=== PATIENT | male | born 1995 | race Hispanic/Latino ===

== ENCOUNTER 2021-07-22 10:33 | Observation (INO) | payer OTHER, SELFPAY ==
[2021-07-22] MEDS ORDERED: Bupivacaine 0.5% 10 ML VIAL ONE (11:05)
[2021-07-22] MEDS ORDERED: ceFAZolin (BATCH) 2 GM/100 ML BAG ONE ×2 (11:45→18:09)
[2021-07-22] MEDS ORDERED: Ketorolac Tromethamine 30 MG/ML VIAL ONE ×2 (11:59→18:18)
[2021-07-22] MEDS ORDERED: Boostrix 0.5 ML (Tdap) VIAL ONE (11:59)
[2021-07-22 14:12] LABS: SARS-CoV-2 NAA Rapid Test Not Detected (NotDetected)
[2021-07-22] MEDS ORDERED: Fentanyl 100 MCG/2 ML VIAL ONE (17:38)
[2021-07-22] MEDS ORDERED: EPINEPHrine 1 MG/ML AMP ONE (17:59)
[2021-07-22] MEDS ORDERED: Neomycin-Polymyxin 1 ML AMP ONE (17:59)
[2021-07-22] MEDS ORDERED: Bupivacaine 0.25% 10 ML VIAL ONE (17:59)
[2021-07-22] MEDS ORDERED: Bacitracin Zinc Ointment 30 gm TUBE ONE (17:59)
[2021-07-22] MEDS ORDERED: Fentanyl 100 MCG/2 ML VIAL SLOW IVP PRN (18:14)
[2021-07-22] MEDS ORDERED: Acetaminophen 325 MG TAB PO PRN (18:14)
[2021-07-22] MEDS ORDERED: HYDROcodone/Acetaminophen 5/325 mg Tablet PO PRN (18:14)
[2021-07-22] MEDS ORDERED: Morphine 4 MG/ML VIAL SLOW IVP PRN (18:14)
[2021-07-22] MEDS ORDERED: Ondansetron PF 4 MG/2 ML Vial SLOW IVP PRN (18:14)
[2021-07-22] MEDS ORDERED: Milk Of Magnesia 30 ML UDCUP PO PRN (18:14)
[2021-07-22] MEDS ORDERED: traMADol HCl 50 MG TAB PO PRN (18:14)
[2021-07-22] MEDS ORDERED: Pharmacy to Dose : VANC/ABX'S IVPB PRN (18:15)
[2021-07-22] MEDS ORDERED: TETANUS AND DIPHTHERIA TOX/PF 0.5 ML DISP.SYRIN IM SCH (18:15)
[2021-07-22] MEDS ORDERED: Dexamethasone 20 MG/5 ML VIAL ONE (18:18)
[2021-07-22] MEDS ORDERED: Lidocaine 1% PF 5 ML VIAL ONE (18:18)
[2021-07-22] MEDS ORDERED: Ondansetron PF 4 MG/2 ML Vial ONE (18:18)
[2021-07-22] MEDS ORDERED: PROPOFOL 200 MG/20 ML VIAL ONE (18:18)
[2021-07-22] MEDS ORDERED: Ketorolac Tromethamine 30 MG/ML VIAL IVP PRN (18:19)
[2021-07-22] MEDS ORDERED: Meperidine HCl/PF 25 MG/ML VIAL IM PRN (18:19)
[2021-07-22] MEDS ORDERED: HYDROmorphone 2 MG/ML VIAL ONE (19:26)
[2021-07-22 21:59] LABS: Anion Gap 12 mmol/L (10-20); BUN (Urea Nitrogen) 11 mg/dL (8.9-20.6); Calc. Creatinine Clearance 0 mL/min (70-130); Calcium 9.1 mg/dL (7.8-10.44); Carbon Dioxide 22 mmol/L (22-29); Chloride 108 mmol/L (98-107); Glucose 103 mg/dL (70-105); Potassium 4.2 mmol/L (3.5-5.1); Sodium 138 mmol/L (136-145)
[2021-07-22 22:03] VITALS: BMI 21.2
[2021-07-22] MEDS ORDERED: Aspirin 81 mg Enteric Coated Tablet PO SCH (23:59)
[2021-07-23] MEDS ORDERED: Aspirin 81 mg Enteric Coated Tablet ONE (00:27)
[2021-07-23] MEDS ORDERED: Aspirin Chewable 81 MG TAB ONE (00:28)
[2021-07-23] MEDS: Vancomycin 1 GM in Premix Bag 1 BAG IVPB SCH ×2 (00:30→09:00)
[2021-07-23] MEDS: Sodium Chloride 0.9% 100 ML IV SCH ×2 (00:30→00:31)
[2021-07-23] MEDS: Sodium Chloride 0.9% 1,000 ML IV SCH ×2 (00:54→11:52)
[2021-07-23] MEDS ORDERED: Aspirin 81 mg Enteric Coated Tablet PO SCH (09:00)
[2021-07-23 10:58] VITALS: BP 112/70; TEMP 97.7
== END 2021-07-23 12:45 | disposition home or self-care (01) ==
LOC: ERS 10:33 → ERHOLD 12:13 → SURG A 17:18 → OBSVTOIN 18:14 → INTOOBSV 18:14 → MSONC 21:43
PROVIDERS: ADMIT Orthopaedic Surgery Hand Surgery; ATTEND Orthopaedic Surgery Hand Surgery
PROC: 0PST04Z Reposition Right Finger Phalanx with Internal Fixation Device, Open Approach (ICD-10-PCS; principal; 2021-07-22)
PROC: 0HQQXZZ Repair Finger Nail, External Approach (ICD-10-PCS; 2021-07-22)
DX: S67.194A Crushing injury of right ring finger, initial encounter (principal); S62.634B Displaced fracture of distal phalanx of right ring finger, initial encounter for open fracture; F17.200 Nicotine dependence, unspecified, uncomplicated; Z20.822 Contact with and (suspected) exposure to COVID-19; W20.8XXA Other cause of strike by thrown, projected or falling object, initial encounter; Y99.0 Civilian activity done for income or pay
CPT/HCPCS: 26750; 36415; 76000; 80048; 90471; 90715; 96365; 96367; 96375; G0378; J0171; J0690; J1100; J1170; J1885; J2405; J2704; J3010; J3370; J3490; J7050; S0020; U0002